=== PATIENT | female | born 1965 | race Caucasian/White ===

== ENCOUNTER 2019-11-29 09:59 | Emergency (ER) | payer OTHER ==
[2019-11-29] MEDS ORDERED: Propofol 200 MG/20 ML SDV IV ONE (10:00)
--- NOTE | 2019-11-29 10:05 | EDM.PDOC ---
ED HPI GENERAL MEDICAL PROBLEM - General Chief Complaint: Lower Extremity Injury/Pain Stated Complaint: UNKNOWN Time Seen by Provider: 11/29/19 10:05 Source of Information: Reports: Patient, EMS, RN, RN Notes Reviewed History Limitations: Reports: No Limitations - History of Present Illness INITIAL COMMENTS - FREE TEXT/NARRATIVE: Pt arrives to ER by ambulance with c/o left ankle pain sustained from a ground level fall from slipping on the ice on her way to work this morning. She denies head injury, or any other injuries besides the left ankle. Pt rates the pain 9/ 10. Nothing alleviates the pain. Movement of the left ankle aggravates the pain. Onset: Today, Sudden Duration: Constant Location: Reports: Lower Extremity, Left Quality: Reports: Ache Severity: Severe Associated Symptoms: Reports: No Other Symptoms Left Ankle Pain Score (Numeric/FACES): 10 - Related Data Allergies Allergy/AdvReac Type Severity Reaction Status Date / Time Sulfa (Sulfonamide Allergy Intermediate Rash Verified 11/29/19 10:17 Antibiotics) Home Meds: Home Meds Levothyroxine 1 tab PO DAILY 11/29/19 [History] Lisdexamfetamine Dimesylate [Vyvanse] 70 mg PO DAILY 11/29/19 [History] buPROPion [Wellbutrin SR] 150 mg PO DAILY 11/29/19 [History] traZODone HCl [Trazodone HCl] 1 tab PO DAILY 11/29/19 [History] Social & Family History - Family History Family Medical History: Noncontributory - Living Situation & Occupation Occupation: Employed Review of Systems - Review of Systems Review Of Systems: Comprehensive ROS is negative, except as noted in HPI. ED EXAM, GENERAL - Physical Exam Exam: See Below Exam Limited By: No Limitations General Appearance: Alert, WD/WN, No Apparent Distress Eye Exam: Bilateral Eye: Normal Inspection Nose: Normal Inspection Throat/Mouth: Normal Inspection, Normal Voice Head: Atraumatic, Normocephalic Neck: Normal Inspection, Full Range of Motion Respiratory/Chest: No Respiratory Distress, Lungs Clear, Normal Breath Sounds, No Accessory Muscle Use, Chest Non-Tender Cardiovascular: Normal Peripheral Pulses, Regular Rate, Rhythm Back Exam: Normal Inspection, Full Range of Motion Extremities: Normal Capillary Refill, Limited Range of Motion (Left ankle with bruising and soft tissue swelling, acutely tender to palpation, visible deformity, skin is intact) Neurological: Alert, Oriented, Normal Cognition, No Motor/Sensory Deficits Psychiatric: Anxious Skin Exam: Warm, Dry, Intact, Normal Color, No Rash ED TRAUMA EXTREMITY PROCEDURES - Splinting Left Lower Extremity Splint Site: Left ankle Pre-Procedure NV Status: Normal Post-Procedure NV Status: Normal Splint Material: Fiberglass Splint Design: Posterior Applied & Form Fitted By: Nurse Provider Post-Splint Application NV Check: NV Status Normal, Good Position Complications: No Course - Vital Signs Last Recorded V/S: Last Vital Signs Temp 97.6 F 11/29/19 10:18 Pulse 50 L 11/29/19 10:18 Resp 18 11/29/19 10:18 BP 115/54 L 11/29/19 10:18 Pulse Ox 100 11/29/19 10:18 - Orders/Labs/Meds Orders: Active Orders 24 hr Category Date Time Status Splinting [RC] ASDIRECTED Care 11/29/19 10:29 Active Ankle 2V Lt [CR] Stat Exams 11/29/19 11:23 Taken Ankle 2V Lt [CR] Stat Exams 11/29/19 13:25 Ordered DME for Discharge [COMM] Routine Oth 11/29/19 11:23 Ordered Meds: Medications Discontinued Medications Generic Name Dose Route Start Last Admin Trade Name Esteban PRN Reason Stop Dose Admin Fentanyl Confirm 11/29/19 13:05 Sublimaze Administered 11/29/19 13:06 Dose 100 mcg .ROUTE .STK-MED ONE Hydromorphone HCl 1 mg 11/29/19 10:07 11/29/19 10:20 Dilaudid IM 11/29/19 10:08 1 mg ONETIME ONE Administration Ondansetron HCl 4 mg 11/29/19 10:08 11/29/19 10:32 Zofran Odt PO 11/29/19 10:09 4 mg ONETIME ONE Administration - Radiology Interpretation Free Text/Narrative:: XR Left ankle: bimalleolar fracture with ankle mortise disruption, see Rad. report. XR Left ankle post-reduction: acceptably reduced bimalleolar fracture, see Rad. report. - Re-Assessments/Exams Free Text/Narrative Re-Assessment/Exam: 11/29/19 13:26 See SAFETY ENGINEER note for moderate sedation. Departure - Departure Time of Disposition: 14:30 Disposition: Home, Self-Care 01 Condition: Good Clinical Impression: Closed bimalleolar fracture of left ankle Qualifiers: Encounter type: initial encounter Qualified Code(s): S82.842A - Displaced bimalleolar fracture of left lower leg, initial encounter for closed fracture - Discharge Information *PRESCRIPTION DRUG MONITORING PROGRAM REVIEWED*: Not Applicable *COPY OF PRESCRIPTION DRUG MONITORING REPORT IN PATIENT JOE: Not Applicable Instructions: Ankle Fracture, Crutch Use, Adult, [id number] Forms: ED Department Discharge Additional Instructions: Rx: Percocet (Acetaminophen-Oxycodone) 5mg/325mg *Take an over the counter stool softener while taking this medication to prevent constipation. Rest, ice pack, and elevate left ankle. Use crutches, no weight bearing on left foot/ankle. Call [phone] today to schedule an orthopedic appointment with Dr. Fischer at [facility] in [place]. Sepsis Event Note - Focused Exam Vital Signs: Vital Signs Temp Pulse Resp BP Pulse Ox 11/29/19 10:18 97.6 F 50 L 18 115/54 L 100 Date Exam was Performed: 11/29/19 Time Exam was Performed: 13:26 - My Orders Last 24 Hours: My Active Orders 11/29/19 10:29 Splinting [RC] ASDIRECTED 11/29/19 11:23 Ankle 2V Lt [CR] Stat DME for Discharge [COMM] Routine 11/29/19 13:25 Ankle 2V Lt [CR] Stat - Assessment/Plan Last 24 Hours: My Active Orders 11/29/19 10:29 Splinting [RC] ASDIRECTED 11/29/19 11:23 Ankle 2V Lt [CR] Stat DME for Discharge [COMM] Routine 11/29/19 13:25 Ankle 2V Lt [CR] Stat
[2019-11-29] MEDS ORDERED: HYDROmorphone 1 MG/ML Syringe IM ONE (10:07)
[2019-11-29] MEDS ORDERED: Ondansetron 4 MG Tab.DIS PO ONE (10:08)
--- NOTE | 2019-11-29 11:11 | CR ---
EXAMINATION: Ankle Min 3V Lt SEX: Female AGE: 53 years CLINICAL HISTORY: 53-year-old female injured fall (left ankle pain) INTERPRETATION: Abnormal. 1. Pronounced soft tissue swelling, large ankle joint effusion and BIMALLEOLAR FRACTUREs with disruption of the tibiotalar mortise joint symmetry left ankle (medial displacement distal tibia on the talus) 2. Incidentally noted heel spurs at the insertion plantar aponeurosis and Achilles tendon the os calcis. 3. Reactive arthritic changes talonavicular joint. 4. No sign of left mid or hindfoot fracture. 5. No foreign bodies.
[2019-11-29] MEDS ORDERED: fentaNYL 100 MCG/2 ML SDV ONE (13:05)
--- NOTE | 2019-11-29 14:37 | CR ---
EXAMINATION: Ankle 2V Lt SEX: Female AGE: 53 years CLINICAL HISTORY: 53-year-old female with acute bimalleolar fracture left ankle (post-reduction) #1. 11:29 AM INTERPRETATION: Subtle shift of the dislocated distal tibia back onto the mortise joint but "reduction" incomplete. Avulsion large medial malleolar fragment and spiral fracture distal diaphysis of the lateral malleolus left fibula. Prominent heel spur at insertion Achilles tendon posteriorly on the os calcis.
--- NOTE | 2019-11-29 14:39 | CR ---
EXAMINATION: Ankle 2V Lt SEX: Female AGE: 53 years CLINICAL HISTORY: 53-year-old female bimalleolar fracture left ankle (post-reduction #2) INTERPRETATION: 1. Satisfactory reduction distal tibia relative to the talar dome i.e. anatomic realignment. 2. Medial malleolar and distal fibular (lateral malleolar) fractures satisfactorily opposed and anatomically aligned. 3. Small heel spurs. 4. No sign of other hindfoot fracture. CONCLUSION: Satisfactory reduction left ankle fracture/dislocation.
== END 2019-11-29 14:11 | disposition home or self-care (01) ==
LOC: DL.ED 09:59
DX: S82.842A Displaced bimalleolar fracture of left lower leg, initial encounter for closed fracture (principal); Z88.2 Allergy status to sulfonamides; Z79.899 Other long term (current) drug therapy; W00.0XXA Fall on same level due to ice and snow, initial encounter
CPT/HCPCS: 29515; 73600; 73610; 96372; 99283; A9270; J1170; J2704